=== PATIENT | male | born 1990 | race Caucasian/White ===

== ENCOUNTER 2024-09-07 10:03 | Inpatient (IN) | payer SELFPAY ==
[~2024-09-07] VITALS: Ht 175.3 cm; Wt 95.5 kg
[2024-09-07] MEDS ORDERED: LACO50TA2 PO (10:43)
[2024-09-07] MEDS ORDERED: OXCA150 PO (10:44)
[2024-09-07] MEDS ORDERED: LORazepam 2 MG/ML 1ML Injection ONE ×3 (10:48→13:55)
[2024-09-07] MEDS ORDERED: LORazepam 2 MG/ML 1ML Injection IV ONE ×2 (11:10)
[2024-09-07 11:20] LABS: BASOPHILS ABSOLUTE AUTO 0.03 K/mm3 (0.00-0.23); BASOPHILS PERCENT AUTO 0 % (0-2); EOSINOPHILS ABSOLUTE AUTO 0.02 K/mm3 (0.00-0.68); EOSINOPHILS PERCENT AUTO 0 % (0-6); Hematocrit 26.1 % (37.0-53.0); Hemoglobin 6.9 g/dL (13.5-17.5); IMMATURE GRAN ABSOLUTE AUTO 0.05 K/mm3 (0.00-0.10); IMMATURE GRAN PERCENT AUTO 1 % (0-1); LYMPHOCYTES ABSOLUTE AUTO 0.54 K/mm3 (0.84-5.20); LYMPHOCYTES PERCENT AUTO 6 % (21-46); MONOCYTES ABSOLUTE AUTO 0.48 K/mm3 (0.16-1.47); MONOCYTES PERCENT AUTO 5 % (4-13); Mean Corpuscular HGB 16.9 pg (26.0-34.0); Mean Corpuscular HGB Conc 26.4 g/dL (31.5-36.5); Mean Corpuscular Volume 64 fL (80-100); NEUTROPHILS ABSOLUTE AUTO 8.38 K/mm3 (1.96-9.15); NEUTROPHILS PERCENT AUTO 88 % (41-73); Platelet Count 261 K/mm3 (150-400); RDW Coefficient Variation 21.3 % (11.7-14.2); RDW Standard Deviation 47.3 fL (35.1-46.3); Red Blood Cell Count 4.09 M/mm3 (4.30-5.90)
[2024-09-07 11:31] LABS: Albumin, Blood 3.8 g/dL (3.4-5.0); Albumin/Globulin Ratio 1.4 (0.8-1.8); Bilirubin, Total 0.1 mg/dL (0.1-1.0); Calcium, Blood 8.4 mg/dL (8.5-10.1); Creatinine, Blood 0.72 mg/dL (0.60-1.20); Globulin, Blood 2.8 g/dL (2.2-4.0); Potassium, Blood 4.2 mmol/L (3.5-5.5); Total Protein, Blood 6.6 g/dL (6.4-8.2)
[2024-09-07 12:46] LABS: CORONAVIRUS COVID-19 AG Negative (NEGATIVE); INFLUENZA A AG Negative (NEGATIVE); INFLUENZA B AG Negative (NEGATIVE)
[2024-09-07] MEDS ORDERED: NS 1,000 ML IV SCH ×2 (12:50→16:00)
[2024-09-07] MEDS ORDERED: NS IV ONE (13:00)
[2024-09-07] MEDS ORDERED: LEVETIRACETAM IV ONE (13:00)
[2024-09-07] MEDS ORDERED: Ketorolac Tromethamine 30mg Vial IV ONE (14:15)
[2024-09-07] MEDS ORDERED: Ondansetron HCl 2 MG / ML 2ML Vial IV PRN (15:30)
[2024-09-07] MEDS ORDERED: LORazepam 2 MG/ML 1ML Injection IV PRN (15:30)
[2024-09-07] MEDS ORDERED: FLU VACC TS2024-25(6MOS UP)/PF 45 MCG/0.5 ML SYRINGE IM ONE (15:30)
[2024-09-07 16:21] LABS: Percent Saturation 2.3 % (20.0-50.0)
[2024-09-07 16:59] LABS: Source, Urine Clean Catch
[2024-09-07 17:08] LABS: Appearance, Urine Clear (Clear); Bilirubin, Urine Neg (Neg); Blood, Urine Neg (Neg); Color, Urine Yellow (P-Yellow); Glucose Qualitative, Urine Neg (Neg); Ketones, Urine Neg (Neg); Leukocyte Esterase, Urine Neg (Neg); Nitrite, Urine Neg (Neg); Protein, Urine Neg (Neg); Urobilinogen, Urine NORM (Normal)
[2024-09-07 17:19] LABS: U Amphetamine Screen Not Detected; U Barbituate Screen Not Detected; U Benzodiazapine Screen DETECTED; U Buprenorphine Screen Not Detected; U Cannabinoids Screen DETECTED; U Cocaine Screen Not Detected; U Methadone Screen Not Detected; U Methamphetamine Screen Not Detected; U Opiates Screen Not Detected; U Oxycodone Screen Not Detected; U Phencyclidine Screen Not Detected
[2024-09-07 17:39] LABS: Adenovirus Not Detected (NOT DETECT); Bordetella pertussis Not Detected (NOT DETECT); Chlamydophila pneumoniae Not Detected (NOT DETECT); Coronavirus 229E Not Detected (NOT DETECT); Coronavirus HKU1 Not Detected (NOT DETECT); Coronavirus NL63 Detected (NOT DETECT); Coronavirus OC43 Not Detected (NOT DETECT); Human Metapneumovirus Not Detected (NOT DETECT); Human Rhinovirus/Enterovirus Not Detected (NOT DETECT); Influenza A/2009-H1 Not Detected (NOT DETECT); Influenza A/H1 Not Detected (NOT DETECT); Influenza A/H3 Not Detected (NOT DETECT); Influenza B Not Detected (NOT DETECT); Mycoplasma pneumoniae Not Detected (NOT DETECT); Parainfluenza Virus 1 Not Detected (NOT DETECT); Parainfluenza Virus 2 Not Detected (NOT DETECT); Parainfluenza Virus 3 Not Detected (NOT DETECT); Parainfluenza Virus 4 Not Detected (NOT DETECT); Respiratory Syncytial Virus Not Detected (NOT DETECT); SARS-Cov-2 (COVID-19), BioFire Not Detected (NOT DETECT)
[2024-09-07 19:58] VITALS: BP 103/58
[2024-09-07] MEDS ORDERED: OXcarbazepine 150 MG Tab PO SCH (21:00)
[2024-09-07] MEDS ORDERED: Lacosamide 50 MG Tablet PO SCH (21:00)
[2024-09-08] MEDS ORDERED: OXcarbazepine 300 MG Tab PO SCH ×2 (00:45→09:00)
[2024-09-08] MEDS ORDERED: levETIRAcetam 1,000 MG in NS 100 ML IV SCH (02:00)
--- NOTE | 2024-09-08 03:49 | NUR ---
REC'D PT FROM ER ACCOMPANIED BY STAFF AND S/O, JOSE WHOM WILL BE BACK IN THE AM. PT WAS SEDATED WITH MINMIMAL RESPONSE TO QUESTIONS. HE REC'D 6MG TOTAL OF ATIVAN IN ER FOR WITNESS SEIZURES. HX OF SEIZURES AND ANEMIA. HEMOGLOBIN 6.9, 1 UNIT PRBS GIVEN IN ER WITH ANOTHER READY IF PT SHOULD REQUIRE. PT SLEPT MOST OF THE NIGHT BUT DID WAKE UP ENOUGH TO ASSESS BRIEFLY AND BACK TO SLEEP. HE IS NPO, HOWEVER WAS GIVEN WATER WITH MEDICATIONS, SWALLOWED WATER WITH A STRAW WITHOUT DIFFICULTY, NO CONCERNS. NO ACUTE NEEDS OR WITNESS SEIZURES THROUGHOUT THE NIGHT.
[2024-09-08 05:48] VITALS: BP 117/75
--- NOTE | 2024-09-08 06:25 | NUR ---
INFECTION CONTROL CALLED AND ISOLATION, DROPLET OR CONTACT PRECAUTIONS NOT NECESSARY FOR CORONAVIVIS. ADVISED TO USE STANDARD PRECAUTIONS WITH MASK IF PT IS COUGHING. PT IS NOT COUGHING THIS SHFIT.
[2024-09-08 06:36] LABS: Hematocrit 26.1 % (37.0-53.0); Hemoglobin 7.2 g/dL (13.5-17.5); Mean Corpuscular HGB 17.8 pg (26.0-34.0); Mean Corpuscular HGB Conc 27.6 g/dL (31.5-36.5); Mean Corpuscular Volume 64 fL (80-100); Platelet Count 214 K/mm3 (150-400); RDW Coefficient Variation 21.2 % (11.7-14.2); RDW Standard Deviation 47.5 fL (35.1-46.3); Red Blood Cell Count 4.05 M/mm3 (4.30-5.90); White Blood Cell Count 8.49 K/mm3 (4.00-11.30)
[2024-09-08 07:07] LABS: Bun/Creatinine Ratio 13.6 (12.0-20.0); Calcium, Blood 8.2 mg/dL (8.5-10.1); Creatinine, Blood 0.66 mg/dL (0.60-1.20); Potassium, Blood 3.6 mmol/L (3.5-5.5)
[2024-09-08 07:28] VITALS: BP 115/71
[2024-09-08] MEDS ORDERED: Iron Dextran 50 MG / ML 2ML Vial IV ONE (08:05)
--- NOTE | 2024-09-08 09:58 | NUR ---
RN ADMINISTERED FIRST DOSE OF IRON DEXTROSE. CLOSELY OBSERVING PT FOR S/SX OF ALELRGIC REACTION FOR AT LEAST 1 HR. THIS RN EDUCATED PT ON S/SX OF ALLERGIC REACTION TO REPORT IMMEDIATELY TO THE RN. PT IS ALERT AND ORIENTED. HE IS ASKING HOW EARLY HE CAN BE DISCHARGED. PT REPOTS THAT HE HAS SEIZURES 2-3 X PER MONTH WHEN HE FORGETS TO TAKE HIS MEDICATION. HE HASN'T HEARD FROM HIS SIGNIFIGANT OTHER, AND HAS NOT NO CELL PHONE HERE AT THE HOSPITAL. PT STATES HE FEELS LIKE HE HAS BEEN "DUMPED" HERE.
[2024-09-08] MEDS ORDERED: Iron Dextran 975 MG in NS 250 ML IV SCH (10:00)
--- NOTE | 2024-09-08 10:35 | NUR ---
DR. CACERES ROUNDING BEDSIDE. GIRLFRIEND JOSE IS AT BEDSIDE. DISCUSSING CONSULT FROM NEUROLOGIST. DISCUSSING DISCHARGE PLANS. NO ADVERSE REACTIONS FROM IRON DEXTROSE NOTED. RN CALLED PHARMACY TO REQUEST SECOND DOSE OF IRON DEXTROSE.
--- NOTE | 2024-09-08 10:50 | NUR ---
pt's girlfriend calls out "I need help!" This RN and BINGO USHER entered the room, pt was pulling at his IV tubing stating that he didn't want to be here. RN asked if pt was in pain, pt denied pain. RN gave pt a sip of water with straw, which he swallowed without difficulty. Pt's girlfriend Ashlee remains tearful at bedside, stating that she needs pt to stay here to stay safe. RN advised pt that the next step will be a second dose of iron dextrose via IV. At this time, pt states he will call RN if there is something he needs so that he can comfortably remain here.
[2024-09-08] MEDS ORDERED: Diazepam 5 MG / ML 2ML SYR IV PRN (12:40)
[2024-09-08] MEDS ORDERED: TraZODone HCl 100 MG Tab PO PRN (12:40)
[2024-09-08 14:17] VITALS: BP 127/74
--- NOTE | 2024-09-08 16:08 | NUR ---
pt has pulled out both of his IV's. THIS RN SPOKE TO JULISA, CHARTERED WEALTH MANAGER, AND ALSO CALLED TO UPDATE DR. CACERES. PT IS UNSURE IF HE WANTS TO STAY. RN ADVISED/ENCOURAGED PT TO SPEND THE NIGHT SO WE CAN MONITOR HIM. PT STATES HE DOESN'T FEEL COMFORTABLE IN HOSPITALS AND DOESN'T WANT TO STAY. HE IS AGGITATED AND STARTS PACING IN THE HALLWAY. HE HAS ALREADY CALLED HIS RIDE, A FRIEND OF HIS GIRLFRIEND'S. THIS RN ALSO CALLED PT'S GIRLFRIEND JOSE AT [phone] WITH AN ATTEMPT TO GIVE A PT STATUS UPDATE. JOSE IS WORKING UNTIL 1AM TODAY AND DIDN'T ANSWER THE PHONE. CONFIDENTIAL VOICEMAIL LEFT. RN CALLED DR. CACERES TO UPDATE ON THE PT STATUS, DR. CACERES STATES THAT HE WILL PUT IN THE DISCHARGE ORDERS.
[2024-09-08] MEDS ORDERED: LEVE500 PO (16:58)
[2024-09-08] MEDS ORDERED: TRAZ100 PO (16:58)
--- NOTE | 2024-09-08 17:52 | NUR ---
LATE ENTRY: PT WAS DISCHARGED TO CARE OF PRIVATE VEHICLE DRIVEN BY HIS FRIEND. PERSCRIPTIONS FOR TRAZODONE AND KEPPRA SENT TO [facility]. PT HAD PREVIOUSLY REMOVED HIS OWN IV'S WITH NO REMAINING CANULA IN EITHER SITE. ROOM AIR. HE TOLERATED THE PROCEDURE WELL. NO QUESTIONS AT THIS TIME. RN WHEELED PT OUT VIA WC, AND PT DECIDED TO AMBULATE INDEPENDENTLY TO THE PRIVATE VEHICLE. TOLERATED PROCEDURE WELL.
[2024-09-08] MEDS ORDERED: LevETIRAcetam 500 MG Tab PO SCH (21:00)
[2024-09-09 13:10] LABS: OXCARB/ESLICARB METABOLITE MHD 15.5 ug/mL (10.0-35.0)
== END 2024-09-08 17:17 | disposition home or self-care (01) | DRG 101 ==
LOC: ER 10:03 → ERHOLD 10:04 → MEDS 10:04
PROVIDERS: Student in an Organized Health Care Education/Training Program; ADMIT Internal Medicine
PROC: 30233N1 Transfusion of Nonautologous Red Blood Cells into Peripheral Vein, Percutaneous Approach (ICD-10-PCS; principal; 2024-09-07)
DX: G40.909 Epilepsy, unspecified, not intractable, without status epilepticus (principal); D63.8 Anemia in other chronic diseases classified elsewhere; F17.220 Nicotine dependence, chewing tobacco, uncomplicated; D50.9 Iron deficiency anemia, unspecified; Z88.8 Allergy status to other drugs, medicaments and biological substances; Z28.21 Immunization not carried out because of patient refusal
CPT/HCPCS: 0202U; 36415; 36430; 51701; 70450; 80048; 80053; 80183; 81003; 82272; 82550; 82728; 83540; 83550; 83605; 85025; 85027; 87428-QW; 93005; 93010; 96361; 96361-59; 96365-59; 96366; 96366-59; 96367; 96375-59; 96376; 96376-59; 99285-25; A9270; G0378; J1750; J1885; J1953; J2060; J7030; J7050; P9016

== ENCOUNTER 2024-10-24 09:10 | Emergency (ER) | payer MEDICAID ==
[~2024-10-24] VITALS: Ht 175.3 cm; Wt 68.0 kg
[~2024-10-24 09:10] MED LIST: LACO50TA2 PO; LEVE500 PO; OXCA150 PO; TRAZ100 PO
== END 2024-10-24 09:27 | disposition left against medical advice (07) ==
LOC: ER 09:10
DX: R55 Syncope and collapse (principal); Z79.899 Other long term (current) drug therapy
CPT/HCPCS: 99284

== ENCOUNTER 2024-10-24 10:48 | Emergency (ER) | payer MEDICAID ==
[~2024-10-24] VITALS: Ht 177.8 cm; Wt 72.6 kg
[2024-10-24 11:44] LABS: BASOPHILS ABSOLUTE AUTO 0.03 K/mm3 (0.00-0.23); BASOPHILS PERCENT AUTO 0 % (0-2); EOSINOPHILS PERCENT AUTO 0 % (0-6); Hemoglobin 10.8 g/dL (13.5-17.5); IMMATURE GRAN ABSOLUTE AUTO 0.09 K/mm3 (0.00-0.10); IMMATURE GRAN PERCENT AUTO 1 % (0-1); LYMPHOCYTES ABSOLUTE AUTO 0.53 K/mm3 (0.84-5.20); LYMPHOCYTES PERCENT AUTO 3 % (21-46); MONOCYTES ABSOLUTE AUTO 0.79 K/mm3 (0.16-1.47); MONOCYTES PERCENT AUTO 5 % (4-13); NEUTROPHILS ABSOLUTE AUTO 15.86 K/mm3 (1.96-9.15); NEUTROPHILS PERCENT AUTO 92 % (41-73); Platelet Count 284 K/mm3 (150-400)
[2024-10-24 11:47] LABS: Hematocrit 34.3 % (37.0-53.0); Mean Corpuscular HGB 25.6 pg (26.0-34.0); Mean Corpuscular HGB Conc 31.5 g/dL (31.5-36.5); Mean Corpuscular Volume 81 fL (80-100); Red Blood Cell Count 4.22 M/mm3 (4.30-5.90)
[2024-10-24 11:48] LABS: Mean Platelet Volume 10.9 fL (9.1-12.4)
[2024-10-24 11:51] LABS: Albumin, Blood 4.1 g/dL (3.4-5.0); Albumin/Globulin Ratio 1.4 (0.8-1.8); Bilirubin, Total 0.3 mg/dL (0.1-1.0); Calcium, Blood 8.8 mg/dL (8.5-10.1); Globulin, Blood 2.9 g/dL (2.2-4.0); Potassium, Blood 4.4 mmol/L (3.5-5.5)
[2024-10-24] MEDS ORDERED: Acetaminophen 500 MG Tab PO ONE (15:00)
[2024-10-26 15:23] LABS: KEPPRA (LEVETIRACETAM) <2 ug/mL (10-40)
== END 2024-10-24 15:08 | disposition home or self-care (01) ==
LOC: ER 10:48
PROVIDERS: Physician Assistant
DX: R55 Syncope and collapse (principal); D72.829 Elevated white blood cell count, unspecified; F17.220 Nicotine dependence, chewing tobacco, uncomplicated; Z79.899 Other long term (current) drug therapy
CPT/HCPCS: 80053; 80177; 85025; 99284

== ENCOUNTER 2025-03-01 14:19 | Observation (INO) | payer OTHER ==
[~2025-03-01] VITALS: Ht 182.9 cm; Wt 90.7 kg
[~2025-03-01 14:19] MED LIST changes: +LACOSAMIDE150 MG PO; +Oxcarbazepine300 MG PO
[2025-03-01] MEDS ORDERED: Diazepam 5 MG Tab PO ONE (14:30)
[2025-03-01 15:03] LABS: BASOPHILS ABSOLUTE AUTO 0.01 K/mm3 (0.00-0.23); BASOPHILS PERCENT AUTO 0 % (0-2); EOSINOPHILS PERCENT AUTO 0 % (0-6); Hematocrit 22.9 % (37.0-53.0); Hemoglobin 6.5 g/dL (13.5-17.5); IMMATURE GRAN ABSOLUTE AUTO 0.02 K/mm3 (0.00-0.10); IMMATURE GRAN PERCENT AUTO 0 % (0-1); LYMPHOCYTES ABSOLUTE AUTO 0.55 K/mm3 (0.84-5.20); LYMPHOCYTES PERCENT AUTO 8 % (21-46); MONOCYTES ABSOLUTE AUTO 0.38 K/mm3 (0.16-1.47); MONOCYTES PERCENT AUTO 6 % (4-13); Mean Corpuscular HGB 19.8 pg (26.0-34.0); Mean Corpuscular HGB Conc 28.4 g/dL (31.5-36.5); Mean Corpuscular Volume 70 fL (80-100); NEUTROPHILS ABSOLUTE AUTO 5.99 K/mm3 (1.96-9.15); NEUTROPHILS PERCENT AUTO 86 % (41-73); Platelet Count 215 K/mm3 (150-400); RDW Standard Deviation 45.4 fL (35.1-46.3); Red Blood Cell Count 3.29 M/mm3 (4.30-5.90); White Blood Cell Count 6.95 K/mm3 (4.00-11.30)
[2025-03-01 15:06] LABS: Mean Platelet Volume 10.9 fL (9.1-12.4)
[2025-03-01 15:28] LABS: Albumin, Blood 3.4 g/dL (3.4-5.0); Albumin/Globulin Ratio 1.3 (0.8-1.8); Bilirubin, Total 0.2 mg/dL (0.1-1.0); Bun/Creatinine Ratio 13.8 (12.0-20.0); Calcium, Blood 7.7 mg/dL (8.5-10.1); Creatinine, Blood 0.72 mg/dL (0.60-1.20); Globulin, Blood 2.6 g/dL (2.2-4.0); Potassium, Blood 4.2 mmol/L (3.5-5.5)
[2025-03-01 16:10] LABS: IMMATURE RETIC FRACTION 2.5 % (2.3-16.0); RETIC HGB EQUIVALENT 14.7 pg (28.20-36.60); RETICULOCYTE ABSOLUTE 0.036 M/mm3 (0.0200-0.1100); RETICULOCYTE COUNT PERCENT 1.06 % (0.50-2.50)
[2025-03-01] MEDS ORDERED: Diazepam 5 MG / ML 2ML SYR IV PRN (16:10)
[2025-03-01] MEDS ORDERED: Sod Ferric Gluc Complx/Sucrose 125 MG in NS 100 ML IV ONE (16:20)
[2025-03-01] MEDS ORDERED: NS 1,000 ML IV ONE (16:26)
[2025-03-01 16:28] LABS: Percent Saturation 2.8 % (20.0-50.0)
[2025-03-01] MEDS ORDERED: Diazepam 5 MG / ML 2ML SYR IV ONE (16:40)
[2025-03-01 17:54] LABS: U Cannabinoids Screen DETECTED
[2025-03-01 17:55] LABS: U Amphetamine Screen Not Detected; U Barbituate Screen Not Detected; U Benzodiazapine Screen Not Detected; U Buprenorphine Screen Not Detected; U Cocaine Screen Not Detected; U Methadone Screen Not Detected; U Methamphetamine Screen Not Detected; U Opiates Screen Not Detected; U Oxycodone Screen Not Detected; U Phencyclidine Screen Not Detected
--- NOTE | 2025-03-01 19:04 | NUR ---
PT ARRIVED VIA GURNEY FROM ER. PT TRANSFERRED TO BED/SLIDE WITH 3 PERSON ASSIST. REPORT GIVEN TO ONCOMING RN AND QUICK ASSESSMENT COMPLETED. BED IN LOWEST POSITION AND CALL LIGHT WITHIN REACH.
[2025-03-01] MEDS ORDERED: Lacosamide 50 MG Tablet PO SCH (21:00)
[2025-03-01] MEDS ORDERED: TraZODone HCl 100 MG Tab PO SCH (21:00)
[2025-03-01] MEDS ORDERED: OXcarbazepine 300 MG Tab PO SCH (21:00)
--- NOTE | 2025-03-01 21:49 | NUR ---
ADMITTED FEW MINUTES BEFORE SHIFT CHANGE. KNOWN IRRITABLE, HIGH RISK OF LEAVING THE HOSPITAL AND SEIZURE PRONE, APPEARS UNCOOPERATIVE AND DISLIKES TREATMENT CARE /DISCUSSION SOMEHOW. REMOVES TELE CORDS AND MAD WHEN ASKED IF WE CAN TAKE IT BACK. REMINDED OF NEED FOR BLOOD TRANSFUSION BUT STILL DENIES INTEREST. ACCOMPANIED BY GIRLFRIEND AND SHE ASKED TO LET PT KNOW WHEN HE WAKES UP THAT SHE WILL COME BACK IN A SHORT WHILE. AT 9PM REFERRED TO DEUCE (BREAK NURSE) AND CN ABOUT PT EXTREME DESIRES OF SIGNING AMA FORMS AND THEN WALKED OUT OF ROOM ALREADY BEFORE GIRLFRIEND ARRIVED AND TRY TO RUN AND CATCH UP ON HIM.
[2025-03-04 03:29] LABS: OXCARB/ESLICARB METABOLITE MHD 13.2 ug/mL (10.0-35.0)
== END 2025-03-01 21:25 | disposition left against medical advice (07) ==
LOC: ER 14:19 → MEDS 14:20
PROVIDERS: Emergency Medicine; ADMIT Internal Medicine
DX: G40.909 Epilepsy, unspecified, not intractable, without status epilepticus (principal); D50.9 Iron deficiency anemia, unspecified; Z88.8 Allergy status to other drugs, medicaments and biological substances; Z53.29 Procedure and treatment not carried out because of patient's decision for other reasons
CPT/HCPCS: 36415; 80053; 80183; 82728; 83540; 83550; 85025; 85045; 86850; 86900; 86901; 86923; 96365; 96375; 99285-25; A9270; G0378; J2916; J3360; J7030

== ENCOUNTER 2025-06-06 09:55 | Emergency (ER) | payer OTHER ==
[~2025-06-06] VITALS: Ht 177.8 cm; Wt 81.7 kg
[2025-06-06] MEDS ORDERED: NS 1,000 ML IV SCH (10:40)
[2025-06-06] MEDS ORDERED: Diazepam 5 MG / ML 2ML SYR IM ONE (10:45)
[2025-06-06 12:00] LABS: BASOPHILS ABSOLUTE AUTO 0.03 K/mm3 (0.00-0.23); BASOPHILS PERCENT AUTO 0 % (0-2); EOSINOPHILS ABSOLUTE AUTO 0.01 K/mm3 (0.00-0.68); EOSINOPHILS PERCENT AUTO 0 % (0-6); Hematocrit 32.0 % (37.0-53.0); Hemoglobin 9.2 g/dL (13.5-17.5); IMMATURE GRAN ABSOLUTE AUTO 0.02 K/mm3 (0.00-0.10); IMMATURE GRAN PERCENT AUTO 0 % (0-1); LYMPHOCYTES ABSOLUTE AUTO 0.91 K/mm3 (0.84-5.20); LYMPHOCYTES PERCENT AUTO 13 % (21-46); MONOCYTES ABSOLUTE AUTO 0.39 K/mm3 (0.16-1.47); MONOCYTES PERCENT AUTO 6 % (4-13); Mean Corpuscular HGB Conc 28.8 g/dL (31.5-36.5); Mean Corpuscular Volume 70 fL (80-100); NEUTROPHILS ABSOLUTE AUTO 5.65 K/mm3 (1.96-9.15); NEUTROPHILS PERCENT AUTO 81 % (41-73); NRBC ABSOLUTE 0.00 K/mm3 (0.00-0.02); NRBC Auto 0.0 /100 WBC (0.0-0.2); Platelet Count 248 K/mm3 (150-400); RDW Coefficient Variation 19.9 % (11.7-14.2); RDW Standard Deviation 48.9 fL (35.1-46.3)
[2025-06-06 12:20] LABS: Source, Urine Clean Catch
[2025-06-06 12:23] LABS: Bilirubin, Urine Neg (Neg); Color, Urine Yellow (P-Yellow); Glucose Qualitative, Urine Neg (Neg); Ketones, Urine Neg (Neg); Leukocyte Esterase, Urine Neg (Neg); Protein, Urine 1+ (Neg); Specific Gravity, Urine 1.010 (1.003-1.022); Urobilinogen, Urine NORM (Normal)
[2025-06-06 12:28] LABS: Alanine Aminotransfer (ALT/SGP 43.0 U/L (12-78); Albumin, Blood 3.7 g/dL (3.4-5.0); Albumin/Globulin Ratio 1.5 (0.8-1.8); Anion Gap 5.0 mmol/L (3-11); Aspartate Aminotrans (AST/SGOT 25.0 U/L (12-37); Bilirubin, Total 0.2 mg/dL (0.1-1.0); Blood Urea Nitrogen 8.0 mg/dL (8-24); CO2, Blood 27.0 mmol/L (21-32); Calcium, Blood 8.4 mg/dL (8.5-10.1); Chloride, Blood 109.0 mmol/L (98-108); Creatinine, Blood 0.74 mg/dL (0.60-1.20); Globulin, Blood 2.5 g/dL (2.2-4.0); Glucose, Blood 103.0 mg/dL (70-99); Magnesium, Blood 2.0 mg/dL (1.6-2.4); Phosphorus, Blood 2.0 mg/dL (2.5-4.9); Potassium, Blood 4.3 mmol/L (3.5-5.5); Sodium, Blood 137.0 mmol/L (136-145); Thyroid Stimulating Hormone 0.877 uIU/mL (0.360-4.800); Total Protein, Blood 6.2 g/dL (6.4-8.2)
[2025-06-06 12:45] LABS: Ferritin, Serum 3.0 ng/mL (26-388); Total Iron Binding Capacity 375.0 ug/dL (250-450)
[2025-06-06] MEDS ORDERED: Sod Ferric Gluc Complx/Sucrose 125 MG in NS 100 ML IV ONE (13:45)
== END 2025-06-06 15:13 | disposition home or self-care (01) ==
LOC: ER 09:55
PROVIDERS: Emergency Medicine
DX: R56.9 Unspecified convulsions (principal); D50.9 Iron deficiency anemia, unspecified; Z51.89 Encounter for other specified aftercare; Z79.899 Other long term (current) drug therapy; Z88.1 Allergy status to other antibiotic agents
CPT/HCPCS: 71045; 80053; 82550; 82728; 83550; 83605; 83735; 84100; 84443; 84466; 85025; 93005; 93010; 96361; 96365; 96372-59; 99285-25; A9270; J2916; J3360; J7030